=== PATIENT | female | born 1965 | race Hispanic/Latino ===

== ENCOUNTER 2020-01-22 13:06 | Emergency (ER) | payer OTHER ==
[~2020-01-22] VITALS: Ht 152.4 cm; Wt 73.9 kg
--- OUTSIDE RECORDS SUMMARY | 2020-01-22 13:30 | XMS REPORT | Clinical Summary ---
Author Author [facility] Organization [facility] Address Unknown Phone Unavailable Care Team Providers Care Tobacco Grower Name Role Phone Janell Smallwood Fifi DDS [phone] Jorge Joyce Resident 1 Unavailable Meghann Reno MD PCP Allergies No Known Allergies Medications End Date Status Medication Sig Dispensed Refills Start Date Active acyclovir (ZOVIRAX) 5 % Apply to 30 g 3 ointmentIndications: affected area 8 Genital herpes simplex, 5 times daily unspecified site For herpes outbreak (use Q tip to apply). Additional Information Patient not taking. Reported on 01/04/2020 8:31 AM Active ibuprofen (MOTRIN) 800 mg Take 1 tablet 30 tablet 0 tabletIndications: Neck by mouth 8 pain on left side, Spasm every 8 hours of muscle as needed for Pain Take with food. Additional Information Patient not taking. Reported on 01/04/2020 8:31 AM Active conjugated estrogens Insert 0.5 g 30 g 3 03/13 (PREMARIN) 0.625 mg/gram vaginally 8 vaginal creamIndications: daily. Vaginal atrophy Additional Information Patient not taking. Reported on 01/04/2020 8:31 AM Active oxybutynin (DITROPAN) 5 Take 1 tablet 90 tablet 3 mg tabletIndications: by mouth 2 8 Urgency incontinence times daily. Additional Information Patient not taking. Reported on 01/04/2020 8:31 AM Active cyclobenzaprine Take 1 tablet 60 tablet 1 02/05/20 1 (FLEXERIL) 10 mg by mouth 3 9 tabletIndications: Neck times daily pain as needed for Muscle Spasms. Additional Information Patient not taking. Reported on 01/04/2020 8:31 AM Active hydroCHLOROthiazide Take 1 tablet 90 tablet 1 01/11 (HYDRODIURIL) 25 mg by mouth 9 tabletIndications: daily For Essential hypertension blood pressure. Active melatonin 10 mg Take by 30 capsule 2 capIndications: Sleep mouth. 9 disorder Additional Information Patient not taking. Reported on 01/04/2020 8:31 AM Active fexofenadine (KELTON Take 1 tablet 90 tablet 0 ALLERGY) 180 mg by mouth 0 tabletIndications: daily. Seasonal allergies Active fluticasone propionate Use 1 [place] 16 g 0 (FLONASE) 50 in each 0 mcg/actuation nasal nostril sprayIndications: daily. COVID-19 virus detected Active omeprazole (PRILOSEC) 20 Take 1 90 capsule 1 0 mg delayed release capsules by 0 capsuleIndications: mouth every Gastroesophageal reflux morning disease without (before esophagitis breakfast). 02/04/2019 Discontinued (Reorder) hydroCHLOROthiazide Take 1 tablet 90 tablet 1 (HYDRODIURIL) 25 mg by mouth 8 tabletIndications: daily For Essential hypertension blood pressure. 02/04/2019 Discontinued (Alternate ther apy) lisinopril (PRINIVIL) 10 Take 1 tablet 30 tablet 2 mg tabletIndications: by mouth 8 Essential hypertension daily For blood pressure. 02/04/2019 Discontinued (Dose adjustmen t) Cyclobenzaprine Take 1 tablet 30 tablet 0 01/23/20 1 (FLEXERIL) 5 mg by mouth 2 8 tabletIndications: Neck times daily pain on left side, Spasm as needed for of muscle Muscle Spasms. 02/04/2019 Discontinued (Reorder) omeprazole (PRILOSEC) 20 Take 1 90 capsule 1 0 mg delayed release capsules by 9 capsuleIndications: mouth every Gastroesophageal reflux morning disease without (before esophagitis, Abdominal breakfast). bloating, Epigastric abdominal tenderness without rebound tenderness 02/04/2019 Discontinued (Reorder) cyclobenzaprine Take 1 tablet 60 tablet 1 02/05/20 1 (FLEXERIL) 10 mg by mouth 3 9 tabletIndications: Neck times daily pain as needed for Muscle Spasms. 07/21/2019 Discontinued (Reorder) omeprazole (PRILOSEC) 20 Take 1 90 capsule 1 0 mg delayed release capsules by 9 capsuleIndications: mouth every Gastroesophageal reflux morning disease without (before esophagitis breakfast). 07/21/2019 Discontinued (Reorder) omeprazole (PRILOSEC) 20 Take 1 90 capsule 1 0 mg delayed release capsules by 0 capsuleIndications: mouth every Gastroesophageal reflux morning disease without (before esophagitis breakfast). 01/13/2020 Discontinued (Reorder) omeprazole (PRILOSEC) 20 Take 1 90 capsule 1 0 mg delayed release capsules by 0 capsuleIndications: mouth every Gastroesophageal reflux morning disease without (before esophagitis breakfast). Active Problems Problem Noted Date Left hip pain 07/06/2017 Rash 05/21/2017 Genital herpes simplex 05/21/2017 Left facial swelling 01/03/2017 Fatty liver 11/08/2016 Uterovaginal prolapse 08/12/2016 At rIsk for kidney stones - Hypocalciuria and hyperur icocuria 06/14/2016 Pleuritic pain 06/04/2016 Left flank pain 06/04/2016 Rib pain on left side 06/04/2016 Essential hypertension, benign 04/18/2015 Low back pain 01/13/2015 Lipoma of back 01/13/2015 Hyperlipidemia 07/20/2014 Hyperopia with astigmatism and presbyopia 04/22/2014 Conductive hearing loss in left ear 08/26/2013 Decay, teeth 12/07/2012 CTS (carpal tunnel syndrome) 04/23/2011 Helicobacter pylori (H. pylori) 03/30/2010 Rectocele 02/28/2010 Urinary incontinence 02/15/2010 Cystocele, midline 02/15/2010 Unspecified gastritis and gastroduodenitis without me ntion of hemorrhage 11/09/2009 Pelvic pain 05/19/2006 Left shoulder pain Helicobacter pylori Hypertension Overview: diet controlled PUD (peptic ulcer disease) Dental abscess Encounters Care Team Description Date Type Specialty Marco Antonio Reid MD Medina, Roberto COVID-19 virus detected (Primary Dx); Educated About Covid-19 Virus Infection; Viral URI; Rhinorrhea; Gastroesophageal reflux disease without esophagitis; Dietary counseling; Exercise counseling 01/13/2020 Office Visit Family Practice Meghann Reno MD Seasonal allergies (Primary Dx) 01/04/2020 Telephonic Family Practice Encounter Bran Morse, Fellow() 12/24/2019 Pre-Clinic Pulmonology Review Jeffery Boyce III, MD Medications 07/21/2019 Orders Only Family Practice Priya Cadena RN Medications 07/19/2019 Refill [facility] NO SHOW ENCOUNTER (Primary D x) 03/22/2019 Office Visit Gynecology Meghann Reno MD 02/26/2019 Ancillary Radiology Procedure Meghann Reno MD Goldsmith, Corey E, MD Sleep disorder (Primary Dx) 02/09/2019 Office Visit Neurology Cristobal Alva MD 02/09/2019 Orders Only Neurology Jeffery Boyce III, MD Nonintractable headache, unspecified chr onicity pattern, unspecified headache type 02/07/2019 Hospital Radiology Encounter Jeffery Boyce III, MD 02/04/2019 Ancillary Radiology Procedure Jeffery Boyce III, MD Nonintractable headache, unspecified chr onicity pattern, unspecified headache type (Primary Dx); Neck pain; Preventative health care; Essential hypertension; Gastroesophageal reflux disease without esophagitis 02/04/2019 Office Visit Family Practice Hoa Acuña RN Medications 02/02/2019 Refill [facility] Jeffery Boyce III, MD Medications 02/01/2019 Refill [facility] after 01/21/2019 Immunizations Name Administration Dates Next Due Influenza Vaccine 05/14/2017 (Deferred: Patie nt Refused), 03/21/2015 (Deferred: Patient Refused), 01/24/2011 , 03/14/2010 Influenza Vaccine, 07/07/2017 Seasonal, Injectable Tdap Tetanus, diphtheria, 03/17/2014 acellular pertussis Vaccine Family History Medical History Relation Name Comments Diabetes Mother Hypertension Mother Seizures Son Relation Name Status Comments Brother Alive x3 Father Maternal Grandfather Maternal Grandmother Mother Paternal Grandfather Paternal Grandmother Sister Alive x4 Son Alive x4 Son Alive Son Alive Son Alive Son Alive Social History Date Tobacco Use Types Packs/Day Years Used Never Smoker Smokeless Tobacco: Never Used Tobacco Cessation: Counseling Given: No Drinks/Week oz/Week Comments Alcohol Use 0 Standard drinks or equivalent 0.0 Socially Yes Food Insecurity Answer Date Recorded Within the past 12 months, you worried that your Never mey e 11/03/2017 food would run out before you got money to buy more. Within the past 12 months, the food you bought Never true 11/03/2017 just didn't last and you didn't have mo darryl to get more. Sex Assigned at Date Recorded Not on file Industry Job Start Date Occupation Not on file Not on file Not on file Travel End Travel History Travel Start No recent travel history available. Last Filed Vital Signs Reading Time Taken Comments Vital Sign 176/105 02/09/2019 9:16 AM CDT Blood Pressure 85 02/09/2019 9:16 AM CDT Pulse 37 C (98.6 F) 02/09/2019 9:16 AM CDT Temperature 16 02/09/2019 9:16 AM CDT Respiratory Rate - - Oxygen Saturation - - Inhaled Oxygen Concentration 80.7 kg (178 lb) 02/09/2019 9:16 AM CDT Weight 149.9 cm (4' 11") 02/09/2019 9:16 AM CDT Height 35.95 02/09/2019 9:16 AM CDT Body Mass Index Plan of Treatment Health Maintenance Due Date Last Done Comments Colorectal Cancer Scrn 2017 Annual (FIT/FOBT) Age 50 to 75 Breast Cancer Scrn 02/27/2020 02/26/2019, (Yearly) 11/05/2017, 10/25/2016, Additional history exists Procedures Comments Procedure Name Priority Date/Time Associated Diag nosis MAMMOGRAM BILAT SCREEN Routine 02/26/2019 [facility] DIGITAL 2:[address] HEAD W/O CONTRAST Routine 02/07/2019 Nonintrac table headache, 12:09 PM CDT unspecified chronicity pattern, unspecified headache type CBC Routine 02/04/2019 Essential hyper tension 3:43 PM CDT HEPATITIS PANEL Routine 02/04/2019 Essential hype rtension 3:43 PM CDT HIV AG/AB COMBO ROUTINE Routine 02/04/2019 Essent ial hypertension SCREENING 3:43 PM CDT LIVER PROFILE Routine 02/04/2019 Essential hyper tension 3:43 PM CDT UREA NITROGEN/CREATININE Routine 02/04/2019 Essen tial hypertension 3:43 PM CDT LIPID PROFILE Routine 02/04/2019 Essential hyper tension 3:43 PM CDT GLUCOSE Routine 02/04/2019 Essential hyper tension 3:43 PM CDT CBC/DIFF Routine 02/04/2019 Essential hyper tension 3:43 PM CDT ELECTROLYTES Routine 02/04/2019 Essential hyper tension 3:43 PM CDT XRAY SPINE CER 2-3 AP- Routine 02/04/2019 Neck pa in LAT- ODONTOID 3:42 PM CDT after 01/21/2019 Results * MAMMOGRAM BILAT SCREEN DIGITAL (02/26/2019 2:57 PM CDT) Specimen Impressions Performed At IMPRESSION: BENIGN SMS There is no mammographic evidence of ma lignancy. A 1 year screening mammogram is recommended. I have reviewed the study and agree wit h the findings in the report. This document has been electronically s igned. Liana ramos,fg/penrad:02/26/2019 15:05:06 Party Host: Eve Farah [facility] letter sent: Benign Exam Mammogram BI-RADS: 2 Benign G0202 z1 2.31 Narrative Performed At #[id number] - MAMMOGRAM BILAT SCREEN DIGITAL SMS BILATERAL DIGITAL SCREENING MAMMOGRAM W ITH CAD: 02/26/2019 CLINICAL: Screen. Comparison is made to exams dated: , 11/05/2017 [facility], 10/25/2016 [facility], 09/20/2015, 09/20/2015 [facility], and 09/29/2014 [facility]. The tissue of both breasts is heterogen eously dense. This may lower the sensitivity of mammography. Current study was also evaluated with a Computer Aided Detection (CAD) system. There are benign calcifications in both breasts. There is a mole marker on the right breast. No significant masses, calcifications, or other findings are seen in either breast. There has been no significant interval change. Procedure Note Interface, Rad/Mammog In - 03/01/2019 8:15 AM CDT #[id number] - MAMMOGRAM BILAT SCREEN DIGITAL BILATERAL DIGITAL SCREENING MAMMOGRAM WITH CAD: 02/26/2019 CLINICAL: Screen. Comparison is made to exams dated: 11/05/2017, 11/05/2017 [facility] [place], 10/25/2016 [facility], 09/20/2015, 09/20/2015 [facility] [place], and 09/29/2014 [facility]. The tissue of both breasts is heterogeneously dense. This may lower the sensitivity of mammography. Current study was also evaluated with a Computer Aided Detection (CAD) system. There are benign calcifications in both breasts. There is a mole marker on the right breast. No significant masses, calcifications, or other findings are seen in either breast. There has been no significant interval change. IMPRESSION IMPRESSION: BENIGN There is no mammographic evidence of malignancy. A 1 year screening mammogram is recommended. I have reviewed the study and agree with the findings in the report. This document has been electronically signed. Liana ramos,fg/penrad:02/26/2019 15:05:06 Party Host: Eve Farah, [facility] letter sent: Benign Exam Mammogram BI-RADS: 2 Benign G0202 z12.31 Performing Organization Address City/State/Zipcode Ph one Number SMS * CT HEAD W/O CONTRAST (02/07/2019 12:09 PM CDT) Specimen Impressions Performed At IMPRESSION: SMS No acute intracranial abnormality Signed By: Kadie Grove MD, 02/07/2019 4 :42 PM Narrative Performed At EXAM:CT HEAD W/O CONTRAST SMS DATE:02/07/2019 12:09 PM INDICATION:Headache, acute, severe, wor st [place]ARD[place] of life COMPARISON:CT head 03/19/2013 TECHNIQUE: Axial images of the head wer e obtained without contrast administration DISCUSSION: No acute intracranial hemorrhage, hydro cephalus or midline shift. No acute hemorrhage. No acute parenchymal abnormality No acute bony lesions. Mucosal disease within the left maxillary sinus. Procedure Note Interface, Rad/Mammog In - 02/07/2019 4:47 PM CDT EXAM:CT HEAD W/O CONTRAST DATE:02/07/2019 12:09 PM INDICATION:Headache, acute, severe, worst [place] of life COMPARISON:CT head 03/19/2013 TECHNIQUE: Axial images of the head were obtained without contrast administration DISCUSSION: No acute intracranial hemorrhage, hydrocephalus or midline shift. No acute hemorrhage. No acute parenchymal abnormality No acute bony lesions. Mucosal disease within the left maxillary sinus. IMPRESSION IMPRESSION: No acute intracranial abnormality Signed By: Kadie Grove MD, 02/07/2019 4:42 PM Performing Organization Address City/State/Zipcode Ph one Number SMS * CBC/Diff (02/04/2019 3:43 PM CDT) WBC 3.7 (L) 4.5 - 11.0 K/uL [facility] RBC 4.53 4.20 - 5.40 M/uL [facility] Hemoglobin 14.0 12.0 - 16.0 g/dL [facility] Hematocrit 42.5 37.0 - 47.0 % [facility] MCV 93.8 (H) 82.0 - 92.0 fL [facility] MCH 30.9 27.0 - 32.0 pg [facility] MCHC 32.9 32.0 - 36.0 g/dL [facility] RDW 45.1 36.4 - 46.3 fL [facility] Platelet 188 150 - 400 K/uL [facility] Mean Platelet 13.0 (H) 9.4 - 12.4 fL [facility] Volume [facility] Percent NRBC 0.0 % [facility] Neutrophil 51.1 34.0 - 70.0 % [facility] Lymphs 39.7 20.0 - 50.0 % [facility] Monocytes 6.2 5.0 - 12.0 % [facility] Eos 2.2 0.7 - 5.0 % [facility] Basos 0.8 0.1 - 1.2 % [facility] Immature 0.0 0.0 - 0.5 % [facility] Granulocytes [facility] Neutrophils 1.89 1.56 - 6.13 K/uL [facility] (Absolute) [facility] Lymphs 1.47 1.18 - 3.74 K/uL [facility] (Absolute) [facility] Monocytes(Absol 0.23 (L) 0.24 - 0.36 K/uL [facility] crow) [facility] Eos (Absolute) 0.08 0.04 - 0.36 K/uL [facility] Baso (Absolute) 0.03 0.01 - 0.08 K/uL [facility] Immature Grans 0.00 0.00 - 0.03 K/uL [facility] (Abs) [facility] Absolute NRBC 0.00 K/uL [facility] Specimen Blood Performing Organization Address [facility] one Number [facility] [address] [place] [address] [phone] * HIV-1/HIV-2 Routine Screening (02/04/2019 3:43 PM CDT) Pathologist [facility] HIV Ag/Ab Combo Negative Negative [facility] Specimen Blood Performing Organization Address [facility] one Number [facility] [address] [place] [address] [phone] * Electrolytes (02/04/2019 3:43 PM CDT) Pathologist [facility] Sodium 142 136 - 145 mmol/L [facility] Potassium 3.5 3.5 - 5.1 mmol/L [facility] Chloride 103 98 - 107 mmol/L [facility] CO2 30 21 - 31 mmol/L [facility] Anion Gap 9 5 - 16 mmol/L [facility] Specimen Blood Performing Organization Address [facility] one Number [facility] [address] [place] [address] * Liver Profile (02/04/2019 3:43 PM CDT) Pathologist [facility] Total Protein 7.1 6.0 - 8.3 g/dL [facility] Bilirubin, 0.6 0.2 - 1.2 mg/dL [facility] Total [facility] Alkaline 58 34 - 104 U/L [facility] Phosphatase [facility] AST 35 13 - 39 U/L [facility] Direct 0.1 0.0 - 0.2 mg/dL [facility] Bilirubin [facility] ALT 51 7 - 52 U/L [facility] Albumin 4.5 3.7 - 5.3 g/dL [facility] Specimen Blood Performing Organization Address [facility] one Number [facility] [address] [place] [address] * Lipid Profile (02/04/2019 3:43 PM CDT) Cholesterol 230.0 (H) <=200.0 mg/dL [facility] Triglyceride 141 <150 mg/dL [facility] HDL 44.0 See Reference Range [facility] Narrative. mg/dL LABORATORY LDL 158 (H) <100 mg/dL [facility] Comment: [facility] Optimal: < 100.0 mg/dL Near Optimal: 120-129 mg/dL Borderline: 130-159 mg/dL High: 160-189 mg/dL Very High: >=190 mg/dL Patient No [facility] Fasting? LABORATORY Specimen Blood Narrative Performed At Patient is not fasting. For a triglyceride result gre ater than 440 mg/dL, [facility] consider re-testing when the patient is in a fasting state. Performing Organization Address [facility] one Number [facility] [address] [place] [address] [phone] * Hepatitis Panel (02/04/2019 3:43 PM CDT) Pathologist [facility] Hepatitis C Negative Negative [facility] Virus (HCV) LAB[facility] Antibody Hep B Surface Negative Negative [facility] Ag [facility] Hep A Vir Ab Negative Negative [facility] IgM [facility] Hep B Core Ab Negative Negative [facility] IgM [facility] Specimen Blood Performing Organization Address [facility] one Number [facility] [address] [place] [address] [phone] * Glucose (02/04/2019 3:43 PM CDT) Pathologist [facility] Glucose 102 70 - 110 mg/dL [facility] Specimen Blood Performing Organization Address [facility] one Number [facility] [address] [place] [address] [phone] * Urea Nitrogen/Creatinine (02/04/2019 3:43 PM CDT) Pathologist [facility] Urea Nitrogen 14.0 7.0 - 25.0 mg/dL [facility] Creatinine 0.7 0.6 - 1.2 mg/dL [facility] GFR, Estimated 88 (L) >=90 mL/min/1.73 m2 [facility] Specimen Blood Performing Organization Address [facility] one Number [facility] [address] [place] [address] * XRAY SPINE CER 2-3 AP- LAT- ODONTOID (02/04/2019 3:42 PM CDT) Specimen Impressions Performed At IMPRESSION: SMS No acute radiographic abnormality. Dictated By: Chencho Juarez MD, 9 4:00 PM I have reviewed the study and agree wit h the findings in this report. Signed By: Laz Mitchell MD, 02/05/2019 8:23 AM Narrative Performed At EXAM: CERVICAL SPINE RADIOGRAPHS [facility] [place] TECHNIQUE: 4 view(s) HISTORY: neck pain COMPARISON: Cervical spine x-ray 016 DISCUSSION: On the lateral view, the cervical spine is visualized from the level of the skull base to C5. Straightening of the normal cervical lo rdosis. No acute displaced fracture, within the limitations of this exam. Discs and Uncovertebral Joints: The disc spaces are well-maintained. Facet Joints: Unremarkable. Procedure Note Interface, Rad/Mammog In - 02/05/2019 8:28 AM CDT EXAM: CERVICAL SPINE RADIOGRAPHS TECHNIQUE: 4 view(s) HISTORY: neck pain COMPARISON: Cervical spine x-ray 06/28/2015 DISCUSSION: On the lateral view, the cervical spine is visualized from the level of the skull base to C5. Straightening of the normal cervical lordosis. No acute displaced fracture, within the limitations of this exam. Discs and Uncovertebral Joints: The disc spaces are well-maintained. Facet Joints: Unremarkable. IMPRESSION IMPRESSION: No acute radiographic abnormality. Dictated By: Chencho Juarez MD, 02/04/2019 4:00 PM I have reviewed the study and agree with the findings in this report. Signed By: Laz Mitchell MD, 02/05/2019 8:23 AM Performing Organization Address City/State/Zipcode Ph one Number SMS after 01/21/2019 Additional Health Concerns Last Indicated Resolved Time Infection Onset Date 01/13/2020 Rule Out Covid-19 01/13/2020 Insurance Type Payer Benefit Subscriber ID Effective Phone Address Plan / Dates Group [employer] xxxxxxxxxxx 2019-9 [address] x [id number] [place] [phone]
--- OUTSIDE RECORDS SUMMARY | 2020-01-22 13:30 | XMS REPORT | Continuity of Care Document ---
Author Author [facility] t Organization [facility] Address [address] [place] [address] Phone Unavailable Care Team Providers Care Fire Control Technician B Name Role Phone NONSTAFF PCP Unavailable GREGOR DAVIDSON Attphys Unavailable THEE GRAHAM Attphys Unavailable SHALINI RODRIGUES Attphys Unavailable Lito Fellow(), Bran Attphys Austen LEIVA, Matthew Gil Attphys Surinder MAS, F Priya Attphys Unavailable Fifi ARTEAGA Attphys Unavailable Artie LEIVA, Wes Jain Attphys Domenico MAS, Rani Camara Attphys Unavailable Payers Payer Name Policy Type Policy Number Effective Date Expiration Date Ninoska stoner [facility] [employer] /11/2019-2020[address] [address] xxxxxxxxxxx 2019 00:00:0 0 2020 23:59:59 [facility] Problems Condition Name Condition Details Condition Category Status Onset Date Resolution Date Last Treatment Date Treating Clinician Comments Source Left hip pain Left hip pain Disease Active 2017-07-06 00:00:00 [facility] Rash Rash Disease Active 2017-05-21 00:00:00 [facility] Genital herpes simplex Genital herpes simplex Disease Active 2017-05-21 00:00:00 [facility] Left facial swelling Left facial swelling Disease Active 00:00:00 [facility] Fatty liver Fatty liver Disease Active 2016-11-08 00:00:00 [facility] Uterovaginal prolapse Uterovaginal prolapse Disease Active 201 11-12-02 00:00:00 [facility] At rIsk for kidney stones - Hypocalciuria and hyperuri cocuria At rIsk for kidney stones - Hypocalciuria and hyperuricocuria Disease Active 201 11-10-02 00:00:00 [facility] Pleuritic pain Pleuritic pain Disease Active 2016-06-04 00:00:00 [facility] Left flank pain Left flank pain Disease Active 2016-06-04 00:00:00 [facility] Rib pain on left side Rib pain on left side Disease Active 201 11-10-23 00:00:00 [facility] Essential hypertension, benign Essential hypertension, benign Disea se Active 2015-04-18 00:00:00 [facility] Low back pain Low back pain Disease Active 2015-01-13 00:00:00 [facility] Lipoma of back Lipoma of back Disease Active 2015-01-13 00:00:00 [facility] Hyperlipidemia Hyperlipidemia Disease Active 2014-07-20 00:00:00 [facility] Hyperopia with astigmatism and presbyopia Hyperopia wi th astigmatism and presbyopia Disease Active 2014-04-22 00:00:00 [facility] Conductive hearing loss in left ear Conductive hearing loss in l eft ear Disease Active 2013-08-26 00:00:00 [facility] Decay, teeth Decay, teeth Disease Active 2012-12-07 00:00:00 [facility] CTS (carpal tunnel syndrome) CTS (carpal tunnel syndrome) Disease Active 2011-04-23 00:00:00 [facility] Helicobacter pylori (H. pylori) Helicobacter pylori (H. pylori) Dis ease Active 2010-03-30 00:00:00 [facility] Rectocele Rectocele Disease Active 2010-02-28 00:00:00 [facility] Urinary incontinence Urinary incontinence Disease Active 00:00:00 [facility] Cystocele, midline Cystocele, midline Disease Active 2010-02-15 00:00:0 0 [facility] Unspecified gastritis and gastroduodenitis without men tion of hemorrhage Unspecified gastritis and gastroduodenitis without mention of hemorrhage Disease Active 2009-11-09 00:00:00 [facility] Pelvic pain Pelvic pain Disease Active 2006-05-19 00:00:00 [facility] Left shoulder pain Left shoulder pain Disease Active [facility] Helicobacter pylori Helicobacter pylori Disease Active [facility] Hypertension Hypertension Disease Active Over view: diet controlled [facility] PUD (peptic ulcer disease) PUD (peptic ulcer disease) Disease Active [facility] Dental abscess Dental abscess Disease Active [facility] Allergies, Adverse Reactions, Alerts This patient has no known allergies or adverse reactions. Family History Family Member Diagnosis Comments Start Date Stop Date Source Natural mother Diabetes [facility] Natural mother Hypertension [facility] Natural son Seizures [facility] Social History Social Habit Start Date Stop Date Quantity Comments Source Sex Assigned At [facility] Alcohol intake 2020-01-13 00:00:00 2020-01-13 00:00:00 Current drinker of alcohol (finding) [facility] History SDOH Food Worry 2017-11-03 00:00:00 2017-11-03 00:00:00 1 [facility] Food Scarcity 2017-11-03 00:00:00 2017-11-03 00:00:00 1 [facility] Alcohol Comment 2012-12-25 00:00:00 2012-12-25 00:00:00 Socially [facility] Smoking Status Start Date Stop Date Source Never smoker [facility] Medications Ordered Medication Name Filled Medication Name Start Date Stop Da te Current Medication? Ordering Clinician Indication Dosage Frequency Signature (SIG) Comments Components Source fluticasone propionate (FLONASE) 50 mcg/actuation nasal spra y 2020-01-13 00:00:00 Yes COVID-19 virus detected 1{spray} QD Use 1 [place] in each nostril daily. [facility] omeprazole (PRILOSEC) 20 mg delayed release capsule 01-12 00:00:00 Yes Gastroesophageal reflux disease without esophagitis 40mg QD Take 1 capsules by mouth every morning (before breakfast). [facility] fexofenadine (KELTON ALLERGY) 180 mg tablet 2020-01-04 00:0 0:00 Yes Seasonal allergies 180mg QD Take 1 tablet by mouth daily. [facility] omeprazole (PRILOSEC) 20 mg delayed release capsule 2019-07-21 00:00:00 2020-01-13 00:00:00 No Gastroesophageal reflux dise ase without esophagitis 40mg QD Take 1 capsules by mouth every morning (before breakfa st). [facility] omeprazole (PRILOSEC) 20 mg delayed release capsule 2019-07-21 00:00:2019-07-21 00:00:00 No Gastroesophageal reflux dise ase without esophagitis 40mg QD Take 1 capsules by mouth every morning (before breakfa st). [facility] melatonin 10 mg cap 2019-02-09 00:00:00 Yes Sleep disorder Take by mouth. [facility] cyclobenzaprine (FLEXERIL) 10 mg tablet 2019-02-04 00:00:00 Yes Neck pain 10mg Take 1 tablet by mouth 3 times daily as needed for Mus meño Spasms. [facility] hydroCHLOROthiazide (HYDRODIURIL) 25 mg tablet 2019-02-04 00 :00:00 Yes Essential hypertension 25mg QD Take 1 tablet by mouth da jg For blood pressure. [facility] omeprazole (PRILOSEC) 20 mg delayed release capsule 2019-02-04 00:00:00 2019-07-21 00:00:00 No Gastroesophageal reflux dise ase without esophagitis 40mg QD Take 1 capsules by mouth every morning (before breakfa st). [facility] cyclobenzaprine (FLEXERIL) 10 mg tablet 00:00:00 2019-02-04 00:00:00 No Neck pain 10mg Take 1 tablet by mouth 3 times daily as needed for Muscle Spasms. [facility] omeprazole (PRILOSEC) 20 mg delayed release capsule 2018-12-14 00:00:00 2019-02-04 00:00:00 No Epigastric abdominal tenderness without rebound tenderness 40mg QD Take 1 capsules by mouth every morning (b efore breakfast). [facility] conjugated estrogens (PREMARIN) 0.625 mg/gram vaginal cream 2018-04-06 00:00:00 Yes Vaginal atrophy .5g QD Insert 0.5 g vaginal ly daily. [facility] oxybutynin (DITROPAN) 5 mg tablet 2018-04-06 00:00:00 Yes Urgency incontinence 5mg Q.5D Take 1 tablet by mouth 2 times daily. [facility] ibuprofen (MOTRIN) 800 mg tablet 2018-01-22 00:00:00 Yes Spasm of muscle 800mg Take 1 tablet by mouth every 8 hours as needed for Pain Take with food. [facility] lisinopril (PRINIVIL) 10 mg tablet 2018-01-22 00:00:00 201 01-18-26 00:00:00 No Essential hypertension 10mg QD Take 1 ta blet by mouth daily For blood pressure. [facility] Cyclobenzaprine (FLEXERIL) 5 mg tablet 2018-01-10 3 00:00:00 2019-02-04 00:00:00 No Spasm of muscle 5mg Take 1 ta blet by mouth 2 times daily as needed for Muscle Spasms. [facility] hydroCHLOROthiazide (HYDRODIURIL) 25 mg tablet 2 00:00:00 2019-02-04 00:00:00 No Essential hypertension 25mg QD Ta ke 1 tablet by mouth daily For blood pressure. [facility] acyclovir (ZOVIRAX) 5 % ointment 2017-05-21 00:00:00 Yes Genital herpes simplex, unspecified site Apply to affec comfort area 5 times daily For herpes outbreak (use Q tip to apply). [facility]th Immunizations Ordered Immunization Name Filled Immunization Name Date Status Comments Source Influenza Vaccine, Seasonal, Injectable 2017-07-07 00:00:0 0 Completed [facility] Tdap Tetanus, diphtheria, acellular pertussis Vaccine 2014-03-17 00:00:00 Completed [facility] Influenza Vaccine 2011-01-24 00:00:00 Completed [facility] Influenza Vaccine 2010-03-14 00:00:00 Completed [facility] Vital Signs Vital Name Observation Time Observation Value Comments Source Systolic blood pressure 2019-02-09 09:16:00 176 mm[Hg] [facility] Diastolic blood pressure 2019-02-09 09:16:00 105 mm[Hg] [facility] Heart rate 2019-02-09 09:16:00 85 /min [facility] Body temperature 2019-02-09 09:16:00 37 Elisabeth [facility] Respiratory rate 2019-02-09 09:16:00 16 /min [facility] Body height 2019-02-09 09:16:00 149.9 cm [facility] Body weight 2019-02-09 09:16:00 80.74 kg [facility] BMI 2019-02-09 09:16:00 35.95 kg/m2 [facility] Procedures Procedure Date / Time Performed Performing Clinician [facility] e X-ray of chest, two views 2019-05-28 00:00:00 JULIANN ARTEAGA [facility] MAMMOGRAM BILAT SCREEN DIGITAL 2019-02-26 14:57:17 Tabatha Boyce [facility] CT HEAD W/O CONTRAST 2019-02-07 12:09:12 Jeffery Boyce [facility] ELECTROLYTES 2019-02-04 15:43:00 Jeffery Boyce [facility] CBC/DIFF 2019-02-04 15:43:00 Jeffery Boyce [facility] GLUCOSE 2019-02-04 15:43:00 Jeffery Boyce [facility] LIPID PROFILE 2019-02-04 15:43:00 Jeffery Boyce [facility] UREA NITROGEN/CREATININE 2019-02-04 15:43:00 Jeffery Boyce [facility] LIVER PROFILE 2019-02-04 15:43:00 Jeffery Boyce [facility] HIV AG/AB COMBO ROUTINE SCREENING 2019-02-04 15:43:00 Pop Boyce omas [facility] HEPATITIS PANEL 2019-02-04 15:43:00 Jeffery Boyce [facility] CBC 2019-02-04 15:43:00 Jeffery Boyce [facility] XRAY SPINE CER 2-3 AP- LAT- ODONTOID 2019-02-04 15:42:12 Jeffery Boyce [facility] Plan of Care Planned Activity Planned Date Details Comments Source Future Scheduled Test 2020-02-27 00:00:00 Breast Cancer Scrn (Yearly) [code = Breast Cancer Scrn (Yearly)] [facility] Future Scheduled Test 2017 00:00:00 Screening for rochelle gnant neoplasm of colon (procedure) [code = 224394520] [facility] Encounters Start Date/Time End Date/Time Encounter Type Admission Type Att[facility] Care Department Encounter ID Source 2020-01-18 00:00:00 2020-01-18 00:00:00 Outpatient REBEL DAVIDSON TO [facility] [id number] [facility] 2020-01-13 16:14:01 2020-01-13 17:39:03 Outpatient SHER GRAHAM [facility] [id number] [facility] 2020-01-04 08:38:25 2020-01-04 12:56:03 Outpatient KIMO RODRIGUES [facility] [id number] [facility] 2019-12-30 00:00:00 2019-12-30 00:00:[address] [facility] [id number] [facility] 2019-05-31 00:00:00 2019-05-31 00:00:00 Outpatient [facility] [id number] [facility] 2019-05-28 19:44:00 2019-05-28 22:03:00 Departed Emergency Room 1 DONTAE ARTEAGA [facility] [id number] [facility] 2019-03-25 00:00:00 2019-03-25 00:00:[address] [facility] [id number] [facility] 2019-03-22 00:00:00 2019-03-22 00:00:[address] [facility] [id number] [facility] 2019-03-15 00:00:00 2019-03-15 00:00:[address] [facility] [id number] [facility] 2019-03-10 00:00:00 2019-03-10 00:00:[address] [facility] [id number] [facility] 2019-02-26 14:29:39 2019-02-26 14:29:[address] [facility] [id number] [facility] 2019-02-17 00:00:00 2019-02-17 00:00:[address] [facility] [id number] [facility] 2019-02-09 09:16:11 2019-02-09 09:16:[address] [facility] [id number] [facility] 2019-02-07 11:52:34 2019-02-07 11:52:[address] [facility] [id number] [facility] 2019-02-04 15:43:17 2019-02-04 15:43:[address] [facility] [id number] [facility] 2019-02-04 15:23:03 2019-02-04 15:23:[address] [facility] [id number] [facility] 2019-02-04 14:13:10 2019-02-04 14:13:[address] [facility] [id number] [facility] 2019-02-04 00:00:00 2019-02-04 00:00:[address] [facility] [id number] [facility] 2019-02-04 00:00:00 2019-02-04 00:00:[address] [facility] [id number] [facility] 2018-06-12 00:00:00 2018-06-12 00:00:[address] [facility] [id number] [facility] 2018-05-25 00:00:00 2018-05-25 00:00:[address] [facility] [id number] [facility] 2018-04-20 00:00:00 2018-04-20 00:00:[address] [facility] [id number] [facility] 2018-04-06 14:49:03 2018-04-06 14:49:[address] [facility] [id number] [facility] 2018-03-25 00:00:00 2018-03-25 00:00:[address] [facility] [id number] [facility] 2018-03-17 00:00:00 2018-03-17 00:00:[address] [facility] [id number] [facility] 2018-03-13 11:02:48 2018-03-13 11:02:[address] [facility] [id number] [facility] 2018-03-13 00:00:00 2018-03-13 00:00:[address] [facility] [id number] [facility] 2018-03-09 00:00:00 2018-03-09 00:00:[address] [facility] [id number] [facility] 2018-03-06 00:00:00 2018-03-06 00:00:[address] [facility] [id number] [facility] 2018-03-06 00:00:00 2018-03-06 00:00:[address] [facility] [id number] [facility] 2018-02-20 00:00:00 2018-02-20 00:00:[address] [facility] [id number] [facility] 2018-02-09 00:00:00 2018-02-09 00:00:[address] [facility] [id number] [facility] 2018-02-06 00:00:00 2018-02-06 00:00:[address] [facility] [id number] [facility] 2018-02-05 00:00:00 2018-02-05 00:00:[address] [facility] [id number] [facility] 2018-02-02 09:19:56 2018-02-02 09:19:[address] [facility] [id number] [facility] 2018-02-02 00:00:00 2018-02-02 00:00:[address] [facility] [id number] [facility] 2018-01-23 00:00:00 2018-01-23 00:00:[address] [facility] [id number] [facility] 2018-01-22 16:11:29 2018-01-22 16:11:[address] [facility] [id number] [facility] 2018-01-19 00:00:00 2018-01-19 00:00:[address] [facility] [id number] [facility] 2018-01-19 00:00:00 2018-01-19 00:00:[address] [facility] [id number] [facility] 2018-01-19 00:00:00 2018-01-19 00:00:[address] [facility] [id number] [facility] 2018-01-16 15:30:16 2018-01-16 15:30:[address] [facility] [id number] [facility] 2018-01-16 11:31:44 2018-01-16 11:31:[address] [facility] [id number] [facility] 2018-01-14 00:00:00 2018-01-14 00:00:[address] [facility] [id number] [facility] 2018-01-13 00:00:00 2018-01-13 00:00:[address] [facility] [id number] [facility] 2018-01-07 00:00:00 2018-01-07 00:00:[address] [facility] [id number] [facility] 2017-12-25 18:00:41 2017-12-25 18:00:[address] [facility] [id number] [facility] 2017-12-11 00:00:00 2017-12-11 00:00:[address] [facility] [id number] [facility] 2017-12-08 00:00:00 2017-12-08 00:00:[address] [facility] [id number] [facility] 2017-11-19 13:37:30 2017-11-19 13:37:[address] [facility] [id number] [facility] 2017-11-10 00:00:00 2017-11-10 00:00:00 Outpatient [facility] [id number] [facility] 2017-11-07 13:13:43 2017-11-07 13:13:[address] [facility] [id number] [facility] 2017-11-05 14:29:23 2017-11-05 14:29:[address] [facility] [id number] [facility] 2017-11-05 13:26:12 2017-11-05 13:26:[address] [facility] [id number] [facility] 2017-11-03 14:57:32 2017-11-03 14:57:[address] [facility] [id number] [facility] 2017-11-03 14:16:39 2017-11-03 14:16:[address] [facility] [id number] [facility] 2017-10-27 22:39:13 2017-10-27 22:39:13 Emergency [facility] [id number] [facility] 2017-10-27 00:00:00 2017-10-27 00:00:[address] [facility] [id number] [facility] 2017-10-13 00:00:00 2017-10-13 00:00:[address] [facility] [id number] [facility] 2017-08-21 00:00:00 2017-08-21 00:00:[address] [facility] [id number] [facility] 2017-08-14 00:00:00 2017-08-14 00:00:[address] [facility] [id number] [facility] 2017-08-11 00:00:00 2017-08-11 00:00:[address] [facility] [id number] [facility] 2017-08-11 00:00:00 2017-08-11 00:00:[address] [facility] [id number] [facility] 2017-07-21 00:00:00 2017-07-21 00:00:[address] [facility] [id number] [facility] 2017-07-14 00:00:00 2017-07-14 00:00:[address] [facility] [id number] [facility] 2017-07-07 15:12:44 2017-07-07 15:12:[address] [facility] [id number] [facility] 2017-07-07 10:17:47 2017-07-07 10:17:[address] [facility] [id number] [facility] 2017-07-07 00:00:00 2017-07-07 00:00:[address] [facility] [id number] [facility] 2017-07-06 17:21:30 2017-07-06 17:21:30 Emergency [facility] [id number] [facility] 2017-06-18 00:00:00 2017-06-18 00:00:[address] [facility] [id number] [facility] 2017-06-09 00:00:00 2017-06-09 00:00:[address] [facility] [id number] [facility] 2017-06-06 00:00:00 2017-06-06 00:00:[address] [facility] [id number] [facility] 2017-06-03 00:00:00 2017-06-03 00:00:[address] [facility] [id number] [facility] 2017-06-02 00:00:00 2017-06-02 00:00:[address] [facility] [id number] [facility] 2017-05-22 00:00:00 2017-05-22 00:00:[address] [facility] [id number] [facility] 2017-05-22 00:00:00 2017-05-22 00:00:[address] [facility] [id number] [facility] 2017-05-21 14:13:30 2017-05-21 14:13:[address] [facility] [id number] [facility] 2017-05-21 00:00:00 2017-05-21 00:00:[address] [facility] [id number] [facility] 2017-05-20 00:00:00 2017-05-20 00:00:[address] [facility] [id number] [facility] 2017-05-19 00:00:00 2017-05-19 00:00:[address] [facility] [id number] [facility] 2017-05-16 00:00:00 2017-05-16 00:00:00 Outpatient [facility] [id number] [facility] 2017-05-14 11:02:28 2017-05-14 11:02:[address] [facility] [id number] [facility] 2017-04-01 00:00:00 2017-04-01 00:00:[address] [facility] [id number] [facility] 2017-04-01 00:00:00 2017-04-01 00:00:[address] [facility] [id number] [facility] 2017-03-31 00:00:00 2017-03-31 00:00:[address] [facility] [id number] [facility] 2017-02-25 00:00:00 2017-02-25 00:00:[address] [facility] [id number] [facility] 2017-01-24 10:30:40 2017-01-24 10:30:[address] [facility] [id number] [facility] 2017-01-17 00:00:00 2017-01-17 00:00:[address] [facility] [id number] [facility] 2017-01-14 12:28:48 2017-01-14 12:28:[address] [facility] [id number] [facility] 2017-01-14 10:37:13 2017-01-14 10:37:[address] [facility] [id number] [facility] 2017-01-09 00:00:00 2017-01-09 00:00:[address] [facility] [id number] [facility] 2017-01-03 12:20:31 2017-01-03 12:20:31 Emergency [facility] [id number] [facility] 2017-01-03 08:29:34 2017-01-03 08:29:[address] [facility] [id number] [facility] 2017-01-02 00:00:00 2017-01-02 00:00:[address] [facility] [id number] [facility] 2016-12-30 17:12:41 2016-12-30 17:12:[address] [facility] [id number] [facility] 2016-12-30 16:48:00 2016-12-30 16:48:00 Emergency [facility] [id number] [facility] 2016-12-30 15:38:17 2016-12-30 15:38:[address] [facility] [id number] [facility] 2016-12-24 00:00:00 2016-12-24 00:00:[address] [facility] [id number] [facility] Results Test Description Test Time Test Comments Results Result Comments Source Influenza Virus Types A,B Antigen 2019-05-28 21:34:00 Test Item Influenza Virus Types A,B Antigen (test code = 37960-4) NEGATIVE NEGATIVE [facility] 2 [id number] 21:26:00 [facility] [address] [place] [address] Patient Name: NAVDEEP SIMMONS MR #: [id number] : [id number] Age/Sex: 54/F Req #: [id number] Adm Physician: Ordered by: DONTAE ARTEAGA MD Report #: [id number] Location: ER Room/Bed: Procedure: [id number] DX/CHEST 2 VIEWS Exam Date: 05/28/19 Exam Time: 2058 REPORT STATUS: Signed EXAMI NATION: CHEST 2 VIEWS INDICATION: COUGH [id number] COMPARISON: None FINDINGS: PA and lateral views TUBES and LINES: None. LUNGS: Limited by low lung volumes. There is no evidenc e of pneumonia or pulmonary edema. PLEURA: No pleural effusion or pneumo thorax. HEART AND MEDIASTINUM: The cardiomediastinal silhouette is unremar kable. BONES AND SOFT TISSUES: No acute osseous lesion. Soft tissues are unremarkable. UPPER ABDOMEN: No free air under the diaphragm. IMPRESSION: No acute thoracic abnormality. Signed by: Dr. Osbaldo nazario MD on 05/28/2019 9:26 PM Dictated By: OSBALDO JANG MD Electronical ly Signed By: OSBALDO JANG MD on 05/28/192125 Transcribed By: ANSON on 05/12 COPY TO: DONTAE ARTEAGA MD Group A Streptococcus [id number] 21:25:00* Test Item Value Reference Range Interpretation Comments Group A Streptococcus Screen (test code = 17083-9) NEGATIVE NEG [facility]IVE [facility] SCREEN [id number] 15:05:00IMPRESSION: BENIGNThere is no mammographic evidence of malignancy. A 1 year screening mammogram is recommended. I have reviewed the study and agree with the findings in the report. This document has been electronically signed. Liana Augustine,fg/penrad:02/26/2019 15:05:06 Journeyman Pipe Fitter: Eve Farah [facility] Benign Exam Mammogram BI-RADS: 2 Benign G0202 z12.31Interface, Rad/Mammog In - 03/01/2019 8:15 AM CDT#[id number] - MAMMOGRAM BILAT SCREEN DIGITALBILATERAL DIGITAL SCREENING MAMMOGRAM WITH CAD: 02/26/2019CLINICAL: Screen. Comparison is made to exams dated: 11/05/2017, 11/05/2017 [facility] [place], 10/25/2016 [facility], 09/20/2015, 09/20/2015 [facility], and 09/29/2014 [facility]. The tissue of both breasts is heterogeneously dense. This may lower the sensitivity of mammography. Current study was also evaluated with a Computer Aided Detection (CAD) system. There are benign calcifications in both breasts. There is a mole marker on the right breast. No significant masses, calcifications, or other findings are seen in either breast. There has been no significant interval change.IMPRESSIONIMPRESSION: BENIGNThere is no mammographic evidence of malignancy. A 1 year screening mammogram is recommended. I have reviewed the study and agree with the findings in the report.This document has been electronically signed.Liana Awad M.D.eal,fg/penrad:02/26/2019 15:05:06 Journeyman Pipe Fitter: Eve Farah, [facility] Centerletter sent: Benign Exam Mammogram BI-RADS: 2 Benign G0202 z12.31[facility]/O [id number] 16:42:07IMPRESSION: No acute intracranial abnormality Signed By: Navdeep Grove MD, 02/07/2019 4:42 PM Interface, Rad/Mammog In - 02/07/2019 4:47 PM CDTEXAM:CT HEAD W/O C ONTRASTDATE:02/07/2019 12:09 PMINDICATION:Headache, acute, severe, worst CARDONA of li feCOMPARISON:CT head 03/19/2013TECHNIQUE: Axial images of the head were obtained without contrastadministrationDISCUSSION: No acute intracranial hemorrhage, hydr ocephalus or midline shift. Noacute hemorrhage. No acute parenchymal abnormality No acute bony lesions. Mucosal disease within the left maxillary sinus.IMPRESSIO NIMPRESSION:No acute intracranial abnormalitySigned By: Navdeep Grove MD, 02/08/20 19 4:42 [facility] HealthHIV-1/HIV-2 Routine [id number] 10:12:00* Test Item Value Reference Range Interpretation Comments HIV Ag/Ab Combo (test code = 80968-3) Negative Negative Lab Interpretation (test code = 95849-3) Normal [facility]Hepatitis [id number] 09:26:00* Test Item Value Reference Range Interpretation Comments Hepatitis C Virus (HCV) Antibody (test code = 74645-4) Negative Negative Hep B Surface Ag (test code = 5196-1) Negative Negative Hep A Vir Ab IgM (test code = 47115-8) Negative Negative Hep B Core Ab IgM (test code = 63658-7) Negative Negative Lab Interpretation (test code = 07447-0) Normal [facility] 2-3 AP- LAT- [id number] 08:23:24IMPRESSION: No acute radiographic abnormality. Dictated By: Chencho Juarez MD, 02/04/2019 4:00 PM I have reviewed the study and agree with the findings in this report. Signed By: Laz Mitchell MD, 02/05/2019 8:23 AM Interface, Rad/Mammog In - 02/05/2019 8:28 AM CDTEXAM: CERVICAL SPINE RADIOGRAPHSTECHNIQUE: 4 view(s)HISTORY: neck painCOMPARISON: Cervical spine x-ray 06/28/2015DISCUSSION:On the lateral view, the cervical spine is visualized from the level ofthe skull base to C5.S traightening of the normal cervical lordosis.No acute displaced fracture, within the limitations of this exam.Discs and Uncovertebral Joints:The disc spaces are well-maintained.Facet Joints:Unremarkable.IMPRESSIONIMPRESSION:No acute radiogr aphic abnormality.Dictated By: Chencho Juarez MD, 02/04/2019 4:00 PMI have reviewe d the study and agree with the findings in this report.Signed By: Laz Mitchell MD, 02/05/2019 8:23 [facility] HospitalCBC/[id number] 07:30:00* Test Item Value Reference Range Interpretation Comments WBC (test code = 6690-2) 3.7 K/uL 4.5-11 L RBC (test code = 789-8) 4.53 4.20- 5.40 M/uL Hemoglobin (test code = 718-7) 14.0 g/dL 12-16 Hematocrit (test code = 4544-3) 42.5 % 37-47 MCV (test code = 787-2) 93.8 fL 82-92 H MCH (test code = 785-6) 30.9 pg 27-32 MCHC (test code = 786-4) 32.9 g/dL 32-36 RDW (test code = 05670-5) 45.1 fL 36.4-46.3 Platelet (test code = 777-3) 188 K/uL 150-400 Mean Platelet Volume (test code = 00575-0) 13.0 fL 9.4-12.4 H Percent NRBC (test code = 65902434) 0.0 % Neutrophil (test code = 770-8) 51.1 % 34-70 Lymphs (test code = 736-9) 39.7 % 20-50 Monocytes (test code = 5905-5) 6.2 % 5-12 Eos (test code = 713-8) 2.2 % 0.7-5 Basos (test code = 706-2) 0.8 % 0.1-1.2 Immature Granulocytes (test code = 18956928) 0.0 % 0-0.5 Neutrophils (Absolute) (test code = 30315746) 1.89 K/uL 1.56-6.1 3 Lymphs (Absolute) (test code = 22462881) 1.47 K/uL 1.18-3.74 Monocytes(Absolute) (test code = 96074142) 0.23 K/uL 0.24-0.36 L Eos (Absolute) (test code = 30308861) 0.08 K/uL 0.04-0.36 Baso (Absolute) (test code = 93974776) 0.03 K/uL 0.01-0.08 Immature Grans (Abs) (test code = 76509289) 0.00 K/uL 0-0.03 Absolute NRBC (test code = 00621273) 0.00 K/uL Lab Interpretation (test code = 79219-0) Abnormal [facility]/[id number] 06:38:00* Test Item Value Reference Range Interpretation Comments Urea Nitrogen (test code = 12257859) 14.0 mg/dL 7-25 Creatinine (test code = 89401894) 0.7 mg/dL 0.6-1.2 GFR, Estimated (test code = 36344691) 88 >=90 mL/min/1.73 m2 L Lab Interpretation (test code = 64859-3) Abnormal [facility] SystemEghctzDtcjhbr8100-12-74 06:38:00* Test Item Value Reference Range Interpretation Comments Glucose (test code = 83974564) 102 mg/dL 70-110 Lab Interpretation (test code = 86272-9) Normal [facility] Health[facility]id [id number] 06:38:00* Test Item Value Reference Range Interpretation Comments Cholesterol (test code = 2093-3) 230.0 mg/dL <=200.0 H Triglyceride (test code = 50587086) 141 mg/dL <150 HDL (test code = 2085-9) 44.0 mg/dL See Reference Range Narrative . LDL (test code = 63484-3) 158 mg/dL <100 H Op timal: < 100.0 mg/dLNear Optimal: 120-129 mg/dLBorderline: 130-159 mg/dLHigh: 160-189 mg/dLVery High: >=190 mg/dL Patient Fasting? (test code = 19857808) No JERE (test code = JERE) Patient is not fasting. For a triglyceride result greater than 440 mg/dL, consider re-testing when the patient is in a fasting state. Lab Interpretation (test code = 59329-4) Abnormal [facility] HealthLiver [id number] 06:38:00* Test Item Value Reference Range Interpretation Comments Bilirubin, Total (test code = 2885-2) 0.6 mg/dL 0.2-1.2 Alkaline Phosphatase (test code = 60688170) 58 U/L 34-104 AST (test code = 74838371) 35 U/L 13-39 Direct Bilirubin (test code = 1968-7) 0.1 mg/dL 0-0.2 ALT (test code = 19474355) 51 U/L 7-52 Albumin (test code = 11718-2) 4.5 g/dL 3.7-5.3 Lab Interpretation (test code = 75795-2) Normal [facility] LijizlDpmvluiwzzvz1917-41-62 06:38:00* Test Item Value Reference Range Interpretation Comments Sodium (test code = 2951-2) 142 mmol/L 136-145 Potassium (test code = 2823-3) 3.5 mmol/L 3.5-5.1 Chloride (test code = 2075-0) 103 mmol/L 98-107 CO2 (test code = 34099406) 30 mmol/L 21-31 Anion Gap (test code = 50419296) 9 mmol/L 5-16 Lab Interpretation (test code = 27150-7) [facility]
--- NOTE | 2020-01-22 13:46 | Emergency Department Note ---
History of Present Illnes History of Present Illness Chief Complaint: COVID PUI History of Present Illness This is a 54 year old female here for persistent cough after diagnosis of completed January 10. Patient states that she has been coughing, times with coughing spells, no shortness of breath no chest pain. Patient also with intermittent body aches but no chest pain. Historian: Patient Arrival Mode: Car Onset (how long ago): day(s) (12) Location: body Quality: ache Radiation: Reports non-radiation Severity: moderate Onset quality: gradual Duration (how long): day(s) (12) Timing of current episode: constant Progression: worsening Context: Reports recent illness Relieving factors: none Exacerbating factors: none Associated symptoms: Reports cough, Reports weakness (non focal ); Denies shortness of breath Past Medical/Family History Physician Review I have reviewed the patient's past medical and family history. Any updates have been documented here. Past Medical History Recent Fever: No Clinical Suspicion of Infectio: Yes New/Unexplained Change in Ment: No Past Medical History: Hypertension, GERD Past Surgical History: Cholecysctectomy, Hysterectomy, Hernia Repair Social History Smoking Cessation: Never Smoker Counseling Performed: No Alcohol Use: Occasional Any Illegal Drug Use: No Other Last Tetanus: UTD Any Pre-Existing Lines (PICC,: No Review of Systems Review of Systems Constitutional: Reports as per HPI EENTM: Reports no symptoms Cardiovascular: Reports no symptoms Respiratory: Reports no symptoms Gastrointestinal: Reports no symptoms Genitourinary: Reports no symptoms Musculoskeletal: Reports as per HPI Integumentary: Reports no symptoms Neurological: Reports no symptoms Psychological: Reports no symptoms Endocrine: Reports no symptoms Hematological/Lymphatic: Reports no symptoms Physical Exam Related Data Allergies: Coded Allergies: No Known Allergies (Unverified , 05/28/19) Triage Vital Signs Vital Signs Date Time Temp Pulse Resp B/P (MAP) Pulse Ox O2 Delivery O2 Flow Rate FiO2 01/22/20 13:08 98.9 95 20 139/88 100 Room Air Physical Exam CONSTITUTIONAL Constitutional: Present well-developed, Present well-nourished HENT HENT: Present normocephalic, Present atraumatic, Present oropharynx clear/m oist, Present nose normal HENT L/R: Present left ext ear normal, Present right ext ear normal EYES Eyes: Reports PERRL, Reports conjunctivae normal NECK Neck: Present ROM normal PULMONARY Pulmonary: Present effort normal, Present breath sounds normal CARDIOVASCULAR Cardiovascular: Present regular rhythm, Present heart sounds normal, Present capillary refill normal, Present normal rate GASTROINTESTINAL Abdominal: Present soft, Present nontender, Present bowel sounds normal GENITOURINARY Genitourinary: Present exam deferred SKIN Skin: Present warm, Present dry MUSCULOSKELETAL Musculoskeletal: Present ROM normal NEUROLOGICAL Neurological: Present alert, Present oriented x 3, Present no gross motor or sensory deficits PSYCHOLOGICAL Psychological: Present mood/affect normal, Present judgement normal Assessment & Plan Medical Decision Making MDM Patient is a 54-year-old female well-appearing with no coinfection. No hypoxia, likely cough secondary to inflammation from COVID infection. If patient does not have a lobar pneumonia, we'll continue symptomatic management and watchful waiting. Assessment & Plan Final Impression: (1) COVID-19 (2) Bronchitis Depart Disposition: HOME, SELF-CARE Last Vital Signs Date Time Temp Pulse Resp B/P (MAP) Pulse Ox O2 Delivery O2 Flow Rate FiO2 01/22/20 13:08 98.9 95 20 139/88 100 Room Air KIMBERLY GRAY MD Jan 22, 2020 13:46
--- NOTE | 2020-01-22 14:57 | Diagnostic Imaging Report ---
EXAMINATION: CHEST SINGLE (PORTABLE) INDICATION: Cough. COMPARISON: Chest x-ray on 05/28/2019. FINDINGS: TUBES and LINES: None. LUNGS: Low lung volumes with bronchovascular crowding. Lungs are clear. No consolidations. There is bibasilar atelectasis. PLEURA: No pleural effusion or pneumothorax. HEART AND MEDIASTINUM: The cardiomediastinal silhouette is unremarkable. BONES AND SOFT TISSUES: No acute osseous lesion. Soft tissues are unremarkable. UPPER ABDOMEN: No free air under the diaphragm. IMPRESSION: Low lung volumes with bronchovascular crowding and bibasilar atelectasis. No focal consolidation, pleural effusion or pneumothorax. Signed by: Nicole Colon MD on 01/22/2020 2:53 PM
[2020-01-22] MEDS ORDERED: ZYRTEC10 M3 PO (15:01)
[2020-01-22] MEDS ORDERED: TESSALON PERLE100 MG PO (15:01)
[2020-01-22 15:13] VITALS: BP 135/84
== END 2020-01-22 15:16 | disposition home or self-care (01) ==
LOC: ER 13:27
DX: U07.1 COVID-19 (principal); J40 Bronchitis, not specified as acute or chronic; R05 Cough; I10 Essential (primary) hypertension; K21.9 Gastro-esophageal reflux disease without esophagitis
CPT/HCPCS: 71045; 99284